=== PATIENT | female | born 1940 | race Caucasian/White ===

== ENCOUNTER 2024-05-17 08:09 | Emergency (ER) | payer OTHER, SELFPAY ==
[2024-05-17 08:13] VITALS: BP 148/75
--- NOTE | 2024-05-17 08:33 | ED.GENMED ---
Addendum entered and electronically signed by John Lee PA-C 05/20/24 07:49:
Urine culture shows greater than 100,000 colony-forming units of E. coli. If this is pansensitive. Sent a prescription for Keflex to her pharmacy. Called the patient and left a message telling her that she has a urinary tract infection. She is
aware that antibiotics were called in.
Original Note:
History of Present Illness
General
Chief Complaint: Vaginal Bleeding
Time Seen by Provider: 05/17/24 08:33
History of Present Illness
History of Present Illness:
TIME OF INITIAL ENCOUNTER: 8:40 AM
HPI: The patient presents due to concerns for vaginal bleeding. She has not had any issues with her uterus/vagina in the past. She denies any rectal bleeding. She does not think it was coming from the urine. She had been trying to lose weight
and did lose some weight but is not sure if it was out of proportion to the amount that she was trying to lose.
EXAM:
GENERAL: Well appearing in no distress
HEENT: Moist oral mucosa
CARDIOVASCULAR: No murmurs, normal heart rate, regular rhythm, No chest wall tenderness
PULMONARY: No respiratory distress, breath sounds are clear and equal
ABDOMEN: Soft with no peritoneal signs, no tenderness
: No blood noted on bimanual examination
RECTAL: Heme-negative brown stool
NEUROLOGIC: Excellent strength all extremities, no coordination deficits
PSYCHIATRIC: Appropriate mental status, normal insight and judgement
EXTREMITIES: Nontender, no edema, moves all extremities equally
SKIN: No rash, no lesions
NUMBER AND COMPLEXITY OF PROBLEMS ADDRESSED AT THE ENCOUNTER
� Chronic conditions affecting care: CHF, high blood pressure, hyperlipidemia, hypothyroidism
� Acute Exacerbation and/or Progression of Chronic Illness: This is an acute problem
� Differential Diagnosis includes: Uterine bleeding, rectal bleeding, uterine mass, hematuria
AMOUNT AND/OR COMPLEXITY OF DATA TO BE REVIEWED AND ANALYZED
� I performed an independent evaluation of and my interpretation is:
EKG:
CT:
X-rays:
Laboratory Studies: White count and hemoglobin are normal
Other: Ultrasound shows mild widening of the endometrium.
� Review of other/old records: Although patient states she has 'stage III kidney disease', in 2021, renal function was normal
� Clinical information was obtained by an independent historian: I spoke to daughter at bedside
� Prescriptions/Medications Considered but not given:
� Further testing considered but not performed:
RISK OF COMPLICATIONS AND/OR MORBIDITY OR MORTALITY OF PATIENT MANAGEMENT
� Social determinants of health affecting care:
� Discussion with other providers:
� Escalation of care including admission/observation vs risk of discharge considered: No gross blood noted on bimanual exam and no occult nor gross blood noted on rectal examination. Ultrasound imaging pelvis obtained.
ANY OTHER UPDATES:
1:15 PM: I reassessed patient, no changes in clinical condition. Hemodynamically stable. Urinalysis suggest infection however I primarily checked a urine looking for blood. Will wait on urine culture. I have given the contact information for a
local vest baster.
Past History
Past History
ED Past Medical History: CHF, HTN, Hypercholesterolemia and Hypothyroidism
ED Past Surgical History: Gynecological and Orthopedic
Social History
Tobacco: Non-smoker
Alcohol: None
Drug: None
Personal: Single
Living: alone
Employment: Employed
Family History
Family History: Other (reviewed and non-contributory)
Phy Exam
Physical Exam
Physical Exam:
See HPI
Course
Orders/Labs/Results
Orders:
Orders
05/17/24 08:41
Complete Blood Count/With Diff Urgent
Comprehensive Metabolic Panel Urgent
05/17/24 08:46
US Pelvis W Transvag Combined Urgent
Reason For Exam: vag bleed
05/17/24 08:47
0.9% Sodium Chloride 1000 ml [Nss] 1,000 ml IV BOLUS
05/17/24 09:57
Straight cath- Treatment ONCE
05/17/24 11:18
Urinalysis Reflex To Culture Urgent
Date Specimen was Collected: 05/17/24
Time Specimen was Collected: 09:40
Urine Microscopic Reflex Cult Urgent
Urine Culture Urgent
TOBIN Source: U
Specimen Description:
Date Specimen was Collected: 05/17/24
Time Specimen was Collected: 09:40
Abnormal Lab Results
05/17/24 05/17/24
08:41 11:18
RBC 3.9 L 10^6/uL
(4.20-5.40)
MCH 32.1 H pg
(27.0-31.0)
Carbon Dioxide 21 L mmol/L
(22-30)
BUN 21 H mg/dl
(7-17)
Creatinine 1.2 H mg/dL
(0.6-1.0)
Glucose 157 H mg/dl
(70-99)
Urine Nitrite (Reflex) Positive A
(Negative)
Leukocyte Esterase Rfl Trace A
(Negative)
Urine WBC (Reflex) 16-20 A /HPF
(0-5)
Urine Bacteria (Reflex) Many A
(Negative)
05/17/24 08:41
05/17/24 08:41
Vital Signs
Initial and Last Documented VS:
Initial Vital Signs
Temp Pulse Resp BP Pulse Ox
36.8 C 93 16 148/75 98
05/17/24 08:13 05/17/24 08:13 05/17/24 08:13 05/17/24 08:13 05/17/24 08:13
Last Documented Vital Signs
Temp Pulse Resp BP Pulse Ox
36.8 C 69 18 141/52 95
05/17/24 08:13 05/17/24 11:30 05/17/24 11:30 05/17/24 11:30 05/17/24 11:30
*Critical Care Note
Total Time (30-74mins, 75-104mins- exclusive of procedures): Not Applicable
ED Attending Note
-
Portions of this chart may have been created with voice recognition software.� Occasional wrong word or��sound alike� substitutions may have occurred due to the inherent limitations of voice recognition software.
Discharge Plan
Departure
Patient Disposition: Home (Routine Discharge)
Date of Disposition: 05/17/24
Time of Disposition: 13:18
Patient with high blood pressure during this ER visit?: Yes
Discharge Problem:
Abnormal vaginal bleeding in postmenopausal patient
Instructions: BLOOD PRESSURE
Prescriptions:
No Action
atorvastatin 40 MG tablet
40 mg PO QPM Qty: 90 0RF
acetaminophen 325 MG tablet
650 mg PO Q4HPRN PRN (Reason: MOY, mild pain, or temp >100.4F) 0RF
meclizine 12.5 MG tablet
12.5 mg PO Q12 Qty: 60 0RF
clopidogrel 75 MG tablet
75 mg PO DAILY Qty: 2 0RF
levothyroxine 75 MCG tablet
75 mcg PO DAILY@0700 Qty: 90 0RF
aspirin 81 MG tablet,chewable
81 mg PO DAILY Qty: 90 0RF
carboxymethylcellulose sodium [TheraTears] 6 DROPS dropperette,gel
1 drops ophthalmic (eye) QIDPRN PRN (Reason: dry eyes) 0RF
cetirizine 10 MG tablet
10 mg PO DAILYPRN PRN (Reason: allergies) Qty: 30 0RF
Referrals:
Tanya Flores MD [Active] - Follow up in 1 week
NOLAN LEWIS MD [Family Provider] -
Activity Restrictions/Additional Instructions:
Your hemoglobin level is normal at 12.5. The urinalysis did not show any signs of bleeding. There is some questionable sign of infection, but we will wait for a urine culture. There is no blood on rectal examination. I recommend you follow-up
with your vest baster. I given you contact information for local vest baster. Return here if worse or other concerns.
Interventions
Interventions:
*Risk Screen - Suicide Last Done: 05/17/24 08:13
*Neglect/Abuse Screening Last Done: 05/17/24 08:13
ED-Female Genitourinary Assessment Last Done: 05/17/24 08:47
Discharge Date and Time
Print Language: DANISH
[2024-05-17 08:47] VITALS: BMI 35.9
[2024-05-17] MEDS: NSS 1000 IV (08:48)
[2024-05-17 09:23] LABS: ALT (SGPT) 17 U/L (0-35); AST (SGOT) 21 U/L (14-36); Albumin 3.8 g/dl (3.5-5.0); Alkaline Phosphatase 70 U/L (38-126); Blood Urea Nitrogen 21 mg/dl (7-17); Carbon Dioxide 21 mmol/L (22-30); Chloride 105 mmol/L (98-107); Estimated Creatinine Clearance 35 ml/min; Glucose 157 mg/dl (70-99); Potassium 4.1 mmol/L (3.5-5.1); Sodium 137 mmol/L (135-145); Total Bilirubin 1.3 mg/dl (0.2-1.3); Total Protein 6.6 g/dl (6.3-8.2); eGFR 44.64
[2024-05-17 10:07] LABS: Hemoglobin 12.5 g/dL (12.0-16.0); Red Blood Cell Count 3.9 10^6/uL (4.20-5.40); White Blood Cell Count 6.7 10^3/uL (4.8-10.8)
[2024-05-17 10:08] LABS: Hematocrit 37.6 % (37.0-47.0); Mean Corp Hgb Conc. 33.2 g/dL (33.0-37.0); Mean Corpuscular Hgb 32.1 pg (27.0-31.0); Mean Corpuscular Volume 96.4 fL (81.0-99.0)
[2024-05-17 10:09] LABS: % Basophils 0.6 % (0-2); % Lymphocytes 22.8 % (20.5-51.1); % Monocytes 7.4 % (1.7-9.3); % Neutrophils 64.9 % (42.2-75.2); Mean Platelet Volume 10.2 fL (7.4-10.4); Platelet Count 323 10^3/uL (130-400); Red Cell Dist. Width 13.2 % (11.5-14.5)
[2024-05-17 10:10] LABS: % Immature Granulocytes 0.3 % (0-0.5); Absolute Eosinophils 0.3 10^3/uL (0-0.7); Absolute Lymphocytes 1.5 10^3/uL (1.2-3.4); Absolute Monocytes 0.5 10^3/uL (0.1-0.6); Absolute Neutrophils 4.4 10^3/uL (1.4-6.5)
[2024-05-17 10:11] LABS: Nucleated Red Blood Cells % 0 %
[2024-05-17 11:30] VITALS: BP 141/52
[2024-05-17 11:59] LABS: Urine Albumin Trace (Neg - Trace); Urine Bilirubin Negative (Negative); Urine Character Clear (Clear); Urine Color Yellow; Urine Glucose Negative (Negative); Urine Ketone Negative (Negative); Urine Leukocyte Trace (Negative); Urine Nitrite Positive (Negative); Urine Occult Blood Negative (Negative); Urine Specific Gravity 1.015 (<1.030); Urine Urobilinogen Negative (Neg - 1+)
[2024-05-17 12:11] LABS: Urine Bacteria Many (Negative); Urine Red Blood Cell 0-2 /HPF (0-2); Urine White Cell 16-20 /HPF (0-5)
== END 2024-05-17 13:41 | disposition home or self-care (01) ==
LOC: EMR 08:09
PROVIDERS: EMERGENCY PHYSICIAN Emergency Medicine; FAMILY PHYSICIAN Internal Medicine
DX: N95.0 Postmenopausal bleeding (principal); E03.9 Hypothyroidism, unspecified; I11.0 Hypertensive heart disease with heart failure; I50.9 Heart failure, unspecified; E78.00 Pure hypercholesterolemia, unspecified
CPT/HCPCS: 96360; 99284; 76830; 76856; 80053; 81003; 81015; 85025; 87086; 87088; 87186